=== PATIENT | female | born 1995 ===

== ENCOUNTER 2021-07-12 20:30 | Emergency (ER) | payer OTHER ==
[~2021-07-12] VITALS: Ht 175.3 cm; Wt 68.0 kg
== END 2021-07-13 00:02 | disposition home or self-care (01) ==
LOC: ER 20:30
DX: S91.321A Laceration with foreign body, right foot, initial encounter (principal); W26.8XXA Contact with other sharp object(s), not elsewhere classified, initial encounter; Y93.89 Activity, other specified; Y92.89 Other specified places as the place of occurrence of the external cause; Y99.8 Other external cause status